=== PATIENT | male | born 1935 | race Caucasian/White ===

== ENCOUNTER 2018-09-25 07:31 | Inpatient (IN) ==
[2018-09-20 12:47] LABS: Basophils # 0.1 10*3/uL (0.0-0.2); Basophils % 1.2 % (0.0-0.8); Eosinophils # 0.1 10*3/uL (0.0-0.87); Hematocrit 41.5 VOL% (42.0-52.0); Hemoglobin 13.4 GM/DL (14.0-18.0); Immature Granulocytes % 0.4 %; Immature Granulocytes Absolute 0.04 #; Lymphocytes # 2.4 10*3/uL (1.4-4.0); Lymphocytes % 23.5 % (21.2-54.2); Mean Corpuscular HGB Conc 32.3 GM/DL (32-36); Mean Corpuscular Volume 89.8 FL (87-102); Mean Platelet Volume 9.9 FL (9.6-12.0); Monocytes % 6.6 % (1.7-12.7); Neutrophils % 67.3 % (38.7-73.9); Platelet Count 296 T/CUMM (130-400); Red Blood Count 4.62 MC/CUMM (3.8-5.5); Red Cell Distribution Width 12.6 % (9.3-17.3); White Blood Count 10.2 T/CUMM (4-12)
[2018-09-20 13:05] LABS: Albumin 3.6 G/DL (3.4-5.0); Bilirubin,Total 0.4 MG/DL (0.2-1.0); Calcium 9.2 MG/DL (8.5-10.1); Osmolality,Calculated 282.4 MOS/KG (273-304); Total Protein 7.4 G/DL (6.4-8.3)
[~2018-09-25 07:31] MED LIST: ceFAZolin 1,000 MG in SYRINGE 1 EACH IV ONE
[2018-09-25] MEDS ORDERED: LIDOCAINE 1% 20 ML VIAL ONE (07:41)
[2018-09-25] MEDS ORDERED: HEPARIN 5,000 UNIT/1 ML VIAL ONE (07:41)
[2018-09-25] MEDS ORDERED: ceFAZolin 1,000 MG VIAL ONE (07:45)
[2018-09-25] MEDS ORDERED: LACTATED RINGERS 1,000 ML IV SCH (08:30)
[2018-09-25] MEDS ORDERED: ROPIVACAINE 0.5% 30 ML VIAL ONE (08:31)
[2018-09-25] MEDS ORDERED: HEPARIN/NACL 0.9% 2 UNITS/ML 500 ML IV ONE (08:31)
[2018-09-25] MEDS ORDERED: LIDOCAINE 1% 5 ML VIAL ONE (08:31)
[2018-09-25] MEDS ORDERED: NITROGLYCERIN DRIP 50 MG/250 ML BOTTLE IV ONE (08:57)
[2018-09-25] MEDS ORDERED: PHENYLEPHRINE DRIP 20 MG/250 ML PREMIX IV ONE (08:57)
[2018-09-25] MEDS ORDERED: GLUCAGON 1 MG VIAL IM PRN (10:40)
[2018-09-25] MEDS ORDERED: NALOXONE 0.4 MG/ML VIAL IV PRN (10:40)
[2018-09-25] MEDS ORDERED: ONDANSETRON 4 MG/2 ML VIAL IV PRN (10:40)
[2018-09-25] MEDS ORDERED: PROMETHAZINE 25 MG/1 ML VIAL IM PRN (10:40)
[2018-09-25] MEDS ORDERED: DEXTROSE 50% 25 GM/50 ML VIAL IV PRN (10:40)
[2018-09-25] MEDS ORDERED: HYDROmorphone 2 MG/1 ML VIAL IV PRN ×2 (10:40)
[2018-09-25] MEDS ORDERED: oxyCODONE/ACETAMINOPHEN 5-325 MG TABLET PO PRN ×2 (10:40)
[2018-09-25] MEDS ORDERED: NITROPRUSSIDE 100 MG in DEXTROSE 5% 250 ML IV SCH (11:00)
[2018-09-25] MEDS ORDERED: PHENYLEPHRINE DRIP 40 MG/250 ML PREMIX IV SCH (11:00)
[2018-09-25] MEDS ORDERED: PROPOFOL 200 MG/20 ML VIAL IV ONE (11:01)
[2018-09-25] MEDS ORDERED: SEVOFLURANE 1 UNIT/15 MINUTE INH ONE (11:01)
[2018-09-25] MEDS ORDERED: HEPARIN 10,000 UNIT/10 ML VIAL ONE (11:01)
[2018-09-25] MEDS ORDERED: ePHEDrine 50 MG/ML AMP ONE (11:02)
[2018-09-25] MEDS ORDERED: ONDANSETRON 4 MG/2 ML VIAL ONE (11:02)
[2018-09-25] MEDS ORDERED: ETOMIDATE 40 MG/20 ML VIAL IV ONE (11:02)
[2018-09-25] MEDS ORDERED: LABETALOL 100 MG/20 ML VIAL IV ONE (11:02)
[2018-09-25] MEDS ORDERED: GLYCOPYRROLATE 0.4 MG/2 ML VIAL ONE (11:02)
[2018-09-25] MEDS ORDERED: fentaNYL 100 MCG/2 ML VIAL ONE (11:02)
[2018-09-25] MEDS ORDERED: SODIUM CHLORIDE 0.9% 2,000 ML IV ONE (11:03)
[2018-09-25] MEDS ORDERED: PROTAMINE SULFATE 50 MG/5 ML VIAL IV ONE (11:03)
[2018-09-25] MEDS ORDERED: NEOSTIGMINE 10 MG/10 ML VIAL ONE (11:03)
[2018-09-25] MEDS ORDERED: ROCURONIUM 100 MG/10 ML VIAL IV ONE (11:03)
[2018-09-25] MEDS: LACTATED RINGERS 1,000 ML IV SCH (11:50)
[2018-09-25] MEDS ORDERED: ATORVASTATIN 10 MG TABLET PO SCH (21:00)
[2018-09-26] MEDS: LACTATED RINGERS 1,000 ML IV SCH ×2 (00:10→07:18)
[2018-09-26 06:04] LABS: Basophils # 0.1 10*3/uL (0.0-0.2); Basophils % 1.2 % (0.0-0.8); Eosinophils # 0.1 10*3/uL (0.0-0.87); Eosinophils % 1.2 % (0.00-10.9); Hematocrit 39.5 VOL% (42.0-52.0); Hemoglobin 12.2 GM/DL (14.0-18.0); Immature Granulocytes % 0.5 %; Immature Granulocytes Absolute 0.05 #; Lymphocytes # 1.9 10*3/uL (1.4-4.0); Lymphocytes % 19.6 % (21.2-54.2); Mean Corpuscular HGB Conc 30.9 GM/DL (32-36); Mean Corpuscular Volume 92.7 FL (87-102); Mean Platelet Volume 10.7 FL (9.6-12.0); Monocytes % 8.8 % (1.7-12.7); Neutrophils % 68.7 % (38.7-73.9); Platelet Count 198 T/CUMM (130-400); Red Blood Count 4.26 MC/CUMM (3.8-5.5); Red Cell Distribution Width 13.1 % (9.3-17.3); White Blood Count 9.7 T/CUMM (4-12)
[2018-09-26 06:40] LABS: Calcium 9.1 MG/DL (8.5-10.1); Osmolality,Calculated 280.5 MOS/KG (273-304)
[2018-09-26] MEDS ORDERED: ALBUMIN 5% 12.5 GM/250 ML VIAL IV ONE (07:37)
[2018-09-26] MEDS ORDERED: CLOPIDOGREL 75 MG TABLET PO SCH (09:00)
[2018-09-26] MEDS ORDERED: ASPIRIN EC 81 MG TABLET PO SCH (09:00)
[2018-09-26] MEDS ORDERED: FUROSEMIDE 40 MG TABLET PO SCH (09:00)
[2018-09-26] MEDS ORDERED: METOPROLOL SUCCINATE XL 25 MG TABLET PO SCH (09:00)
[2018-09-26 16:43] VITALS: BP 135/60
== END 2018-09-26 17:10 | disposition home or self-care (01) | DRG 39 ==
LOC: N.SDSINP 07:31 → N.ICU 11:05 → N.4E 09-26 11:31
PROVIDERS: ADMIT Surgery; ATTEND Surgery